=== PATIENT | female | born 1990 | race Caucasian/White ===

== ENCOUNTER 2021-02-17 09:21 | Emergency (ER) | payer OTHER, SELFPAY ==
[2021-02-17 09:21] VITALS: BP 151/100; PULSE 152; RESP 32; TEMP 36.8; O2SAT 98; BMI 24.0
--- NOTE | 2021-02-17 09:30 | ECG_ITS ---
APPROVED REPORT Exam: Resting ECG HR:114 bpm ECG Measurements Heart Rate 114 AXES QRSd 70 QRS 77 QT 450 T 108 QTc 620 Conclusion Accelerated Junctional rhythm T wave abnormality, consider inferolateral ischemia Abnormal ECG Electronically signed by : Tam Avendaño MD 02/18/2021 21:08:03
--- NOTE | 2021-02-17 09:36 | HMH.EDGENADL ---
ED Disposition Clinical Impression: Carpopedal spasm, Hyperventilation Allergic reaction Qualifiers: Encounter type: initial encounter Qualified Code(s): T78.40XA - Allergy, unspecified, initial encounter Disposition: Home, Self-Care Condition on Discharge: Good Instructions: DI for Hyperventilation, DI for General Allergic Reactions Additional Instructions: Take Benadryl if itching or rash returns. Use EpiPen and return emergency department for any trouble breathing. Additional instructions for ALLERGIC REACTION: See your physician as soon as possible for further evaluation. Return immediately if severe intolerable rash or itching, trouble breathing, or faintness. Referrals: Aditya Gar [Primary Care Provider] - - Critical Care Critical Care Time: No Attestation: On , the high probability of a clinically significant, sudden or life threatening deterioration of the following system(s) required my full and direct attention, intervention and personal management. The time I documented below is in addition to time spent performing reported procedures but includes the following listed in this critical care notation. Medical Decision Making - Danny Inquiry Pt receiving controlled substance: No Vital Signs: 02/17/21 09:21 02/17/21 10:00 02/17/21 10:30 Temperature 98.2 F Temperature Source Oral Pulse Rate 93 H 94 H Pulse Rate [Radial] 152 H Respiratory Rate 32 H 14 13 Blood Pressure 112/66 120/63 Blood Pressure [Right Arm] 151/100 H Blood Pressure Mean 81 79 Blood Pressure Mean [Right Arm] 117 Blood Pressure Position Blood Pressure Position [Right Arm] Sitting 02 Sat by Pulse Oximetry 98 100 96 Oxygen Delivery Method Room Air 02/17/21 11:01 Temperature 98 F Temperature Source Oral Pulse Rate 88 Pulse Rate [Radial] Respiratory Rate 18 Blood Pressure 123/68 Blood Pressure [Right Arm] Blood Pressure Mean Blood Pressure Mean [Right Arm] Blood Pressure Position Sitting Blood Pressure Position [Right Arm] 02 Sat by Pulse Oximetry Oxygen Delivery Method Room Air - Lab Data Lab Results 02/17/21 09:30: WBC 10.5, RBC 4.72, Hgb 14.2, Hct 43.5, MCV 92.1, MCH 30.1, MCHC 32.7, RDW 13.3, Plt Count 261, MPV 8.5, Neut % (Auto) 86.2 H, Lymph % (Auto) 10.9, [place] % (Auto) 2.5, Eos % (Auto) 0.3, Baso % (Auto) 0.1, Neut # (Auto) 9.1 H, Lymph # (Auto) 1.2, [place] # (Auto) 0.3, Eos # (Auto) 0.0, Baso # (Auto) 0.0, Total Counted 100, Neutrophils % (Manual) 83 H, Lymphocytes % (Manual) 14, Monocytes % (Manual) 3, Platelet Estimate Normal, RBC Morphology Normal 02/17/21 09:30: Sodium 141, Potassium 4.0, Chloride 100, Carbon Dioxide 29, Anion Gap 16.0 H, BUN 21 H, Creatinine 0.60, Estimated Creat Clear 132, Estimated GFR 117, Est GFR ( Amer) 141, Glucose 135 H, Calcium 9.3, Total Bilirubin 0.8, AST 31, ALT 27, Alkaline Phosphatase 93, Total Protein 7.8, Albumin 4.9, Globulin 2.9, Albumin/Globulin Ratio 1.7 02/17/21 09:39: Urine Color Yellow, Urine Appearance Clear, Urine pH 8.5, Ur Specific [place] 1.015, Urine Protein 2+, Urine Glucose (UA) Negative, Urine Ketones Negative, Urine Blood Negative, Urine Nitrate Negative, Urine Bilirubin Negative, Urine Urobilinogen 1.0, Ur Leukocyte Esterase Negative, Urine RBC None, Urine WBC 3-5, Ur Squamous Epith Cells Occasional, Urine Bacteria None 02/17/21 10:17: Urine HCG, Qual Negative Result diagrams: 02/17/21 09:30 02/17/21 09:30 Orders (Tests/Meds): ED MEDICATIONS Discontinued Medications Generic Name Dose Route Start Last Admin Trade Name Shelton PRN Reason Stop Dose Admin Famotidine 20 mg 02/17/21 09:54 02/17/21 09:58 Famotidine 20mg/2ml Vial IV 02/17/21 09:55 20 mg ONCE ONE Administration Sodium Chloride 1,000 mls @ 999 mls/hr 02/17/21 09:45 02/17/21 09:41 Sod Chlor 0.9% 1000ml Bag IV 02/17/21 10:45 999 mls/hr .Q1H1M WESLEY Administration Methylprednisolone Sodium Succinate 125 mg 02/17/21 09:54 02/17/21 09:58
[2021-02-17 10:00] VITALS: BP 112/66; PULSE 93; RESP 14; O2SAT 100
[2021-02-17 10:05] LABS: Basophils % 0.1 % (0.1-2.0); Eosinophils % 0.3 % (0.1-12.0); Hematocrit 43.5 % (37.0-47.0); Hemoglobin 14.2 g/dL (12.2-16.2); Lymphocytes # 1.2 K/mm3 (0.7-4.5); Lymphocytes % 10.9 % (10-50); Mean Corpuscular HGB Conc 32.7 g/dL (31.8-35.4); Mean Corpuscular Hemoglobin 30.1 pg (27.0-31.2); Mean Corpuscular Volume 92.1 fl (81-99); Mean Platelet Volume 8.5 fl (7.4-10.4); Monocytes # 0.3 K/mm3 (0.1-1.0); Monocytes % 2.5 % (1.7-9.3); Neutrophils # 9.1 K/mm3 (1.8-7.8); Neutrophils % 86.2 % (37.0-80.0); Platelet Count 261 K/mm3 (142-424); Red Blood Count 4.72 M/mm3 (4.20-5.40); Red Cell Distribution Width 13.3 % (11.5-17.5); White Blood Count 10.5 K/mm3 (4.8-10.8)
[2021-02-17 10:06] LABS: Chloride 100 mmol/L (98-107); Sodium 141 mmol/L (136-145)
[2021-02-17 10:09] LABS: Alanine Aminotransferase 27 U/L (12-78); Albumin Level 4.9 g/dl (3.5-5.0); Albumin/Globulin Ratio 1.7 (1.1-1.8); Alkaline Phosphatase 93 U/L (38-126); Aspartate Amino Transferase 31 U/L (14-36); Bilirubin,Total 0.8 mg/dl (0.2-1.3); Blood Urea Nitrogen 21 mg/dl (7-17); Calcium 9.3 mg/dl (8.4-10.2); Carbon Dioxide 29 mmol/L (22.0-30.0); Creatinine Clearance Estimated 132 mL/min (50-200); Estimated Glomerular Filt Rate 117 ml/min (>60); GFR (African American) 141 ML/MIN (>60); Globulin 2.9 g/dL (1.3-3.2); Glucose 135 mg/dl (74-100); Total Protein,Serum 7.8 g/dl (6.3-8.2)
[2021-02-17 10:15] LABS: MANUAL DIFFERENTIAL MANUAL DIFFERENTIAL (MANUAL DIFF)
[2021-02-17 10:26] LABS: Appearance,Urine CLEAR (Clear); Bilirubin,Urine Negative (Negative); Blood, Urine Negative (Negative); Color,Urine YELLOW (Yellow); Glucose,Urine (UA) Negative (Negative); Ketones,Urine Negative (Negative); Leukocyte Esterase,Urine Negative (Negative); Nitrate,Urine Negative (Negative); PH,Urine 8.5 (5.0-8.5); Protein,Urine 2+ (Negative); Specific Gravity, Urine 1.015 (1.005-1.030)
[2021-02-17 10:27] LABS: Microscopic, Urine URINE MICROSCOPIC (MICROSCOPIC)
[2021-02-17 10:29] LABS: Urine Pregnancy, HCG Qual. Negative (Negative)
[2021-02-17 10:30] VITALS: BP 120/63; PULSE 94; RESP 13; O2SAT 96
[2021-02-17 10:37] LABS: Squamous Epithelial Cell,Urine Occasional #/hpf (0-5)
[2021-02-17 10:40] LABS: Lymphocytes % 14 % (10-50); Monocytes % 3 % (2-9); Neutrophils % 83 % (42-76); Total Cells Counted 100
[2021-02-17 10:41] LABS: Platelet Estimate Normal; RBC Morphology Normal
[2021-02-17 11:01] VITALS: BP 123/68; PULSE 88; RESP 18; TEMP 36.6; O2SAT 98
== END 2021-02-17 11:03 | disposition home or self-care (01) ==
PROVIDERS: Emergency Provider Emergency Medicine; PCP Family Medicine
DX: R29.0 Tetany (principal); T78.40XA Allergy, unspecified, initial encounter; R06.4 Hyperventilation; E71.40 Disorder of carnitine metabolism, unspecified
CPT/HCPCS: 80053; 81001; 81025; 85007; 85025; 93005; 96365; 96375; 99283; J2405

== ENCOUNTER 2021-05-08 09:56 | Emergency (ER) | payer BC, SELFPAY ==
[2021-05-08 10:01] VITALS: BP 104/56; PULSE 92; RESP 14; TEMP 36.7; O2SAT 100; BMI 20.9
--- NOTE | 2021-05-08 10:29 | HMH.EDGENADL ---
ED Disposition Clinical Impression: Gastroenteritis Disposition: Home, Self-Care Condition on Discharge: Good Instructions: DI for Diarrhea and Traveler's Diarrhea -- Adult, DI for Diarrhea and Traveler's Diarrhea -- Child, DI for Nausea -- Adult, DI for Nausea -- Child Additional Instructions: Please call Dr. Marcano with [facility] and make an appointment as soon as possible. Please return to the emergency department with any new or worsening symptoms including persistent vomiting and diarrhea with inability to take your levocarnitine, weakness, fainting, or any other new or concerning symptoms. Prescriptions: Ondansetron [Zofran 4mg ODT] 4 mg PO TIDP PRN 3 Days #9 tab PRN Reason: Nausea Transmission Status: Pending to [facility] Referrals: Aditya Gar [Primary Care Provider] - - Critical Care Critical Care Time: No Attestation: On 05/08/21, the high probability of a clinically significant, sudden or life threatening deterioration of the following system(s) required my full and direct attention, intervention and personal management. The time I documented below is in addition to time spent performing reported procedures but includes the following listed in this critical care notation. Medical Decision Making - Danny Inquiry Pt receiving controlled substance: No Vital Signs: 05/08/21 10:01 05/08/21 10:30 Temperature 98.0 F Temperature Source Oral Pulse Rate 94 H Pulse Rate [Right Radial] 92 H Respiratory Rate 14 18 Blood Pressure 108/55 L Blood Pressure [Right Arm] 104/56 L Blood Pressure Mean 64 Blood Pressure Mean [Right Arm] 72 Blood Pressure Source [Right Arm] Automatic Cuff Blood Pressure Position [Right Arm] Right Lateral 02 Sat by Pulse Oximetry 100 100 Oxygen Delivery Method Room Air - Lab Data Lab Results 05/08/21 10:37: WBC 11.0 H, RBC 4.26, Hgb 13.0, Hct 40.3, MCV 94.6, MCH 30.4, MCHC 32.1, RDW 13.8, Plt Count 220, MPV 9.0, Neut % (Auto) 91.0 H, Lymph % (Auto) 3.2 L, [place] % (Auto) 5.0, Eos % (Auto) 0.5, Baso % (Auto) 0.3, Neut # (Auto) 10.0 H, Lymph # (Auto) 0.4 L, [place] # (Auto) 0.6, Eos # (Auto) 0.1, Baso # (Auto) 0.0 05/08/21 10:37: Sodium 136, Potassium 4.1, Chloride 105, Carbon Dioxide 24, Anion Gap 11.1, BUN 26 H, Creatinine 0.60, Estimated Creat Clear 125, Estimated GFR 116, Est GFR ( Amer) 140, Glucose 105 H, Calcium 8.5, Magnesium 1.5 L, Total Bilirubin 0.6, AST 30, ALT 24, Alkaline Phosphatase 97, Total Protein 8.0, Albumin 4.9, Globulin 3.1, Albumin/Globulin Ratio 1.6 Result diagrams: 05/08/21 10:37 05/08/21 10:37 Orders (Tests/Meds): ED MEDICATIONS Discontinued Medications Generic Name Dose Route Start Last Admin Trade Name Freq PRN Reason Stop Dose Admin Lactated Ringer's 1,000 mls @ 999 mls/hr 05/08/21 11:00 05/08/21 11:15 Lactated Ringer's 1000 Ml Bag IV 05/08/21 12:00 999 mls/hr .Q1H1M WESLEY Administration ORDERS Category Date Time Status Complete Blood Count Auto Diff Stat Lab 05/08/21 10:37 Results Urinalysis and Microscopic Stat Lab 05/08/21 10:28 Ordered Urine , HCG Qual. 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 Patient denies dysuria and does not have chest pain or shortness of breath. Patient is hemodynamically stable at the emergency department and had glucose in the 170s per EMS. Patient received 500 cc crystalloid in route to the emergency department. Patient has soft, nontender abdomen and benign physical examination aside from patient appearing fatigued generally with generalized pallor. CBC, metabolic panel obtained in the emergency department and pediatric genetics at
[2021-05-08 10:30] VITALS: BP 108/55; PULSE 94; RESP 18; O2SAT 100
--- NOTE | 2021-05-08 10:45 | PC.NURSE ---
placed call to [facility] for peds genetics, Dr Gallagher speaking with Dr Xavier
[2021-05-08 10:49] LABS: Potassium 4.1 mmoL/L (3.5-5.1); Sodium 136 mmol/L (136-145)
[2021-05-08 10:50] LABS: Chloride 105 mmol/L (98-107)
[2021-05-08 10:52] LABS: Alanine Aminotransferase 24 U/L (12-78); Albumin Level 4.9 g/dl (3.5-5.0); Albumin/Globulin Ratio 1.6 (1.1-1.8); Alkaline Phosphatase 97 U/L (38-126); Anion Gap 11.1 mEq/L (5-15); Aspartate Amino Transferase 30 U/L (14-36); Bilirubin,Total 0.6 mg/dl (0.2-1.3); Blood Urea Nitrogen 26 mg/dl (7-17); Calcium 8.5 mg/dl (8.4-10.2); Carbon Dioxide 24 mmol/L (22.0-30.0); Creatinine Clearance Estimated 125 mL/min (50-200); Estimated Glomerular Filt Rate 116 ml/min (>60); GFR (African American) 140 ML/MIN (>60); Globulin 3.1 g/dL (1.3-3.2); Glucose 105 mg/dl (74-100); Magnesium 1.5 mg/dl (1.6-2.3)
[2021-05-08 11:00] VITALS: BP 103/43; PULSE 97; O2SAT 99
[2021-05-08 11:03] LABS: Basophils % 0.3 % (0.1-2.0); Eosinophils # 0.1 K/mm3 (0.0-0.4); Eosinophils % 0.5 % (0.1-12.0); Hematocrit 40.3 % (37.0-47.0); Lymphocytes # 0.4 K/mm3 (0.7-4.5); Lymphocytes % 3.2 % (10-50); Mean Corpuscular HGB Conc 32.1 g/dL (31.8-35.4); Mean Corpuscular Hemoglobin 30.4 pg (27.0-31.2); Mean Corpuscular Volume 94.6 fl (81-99); Monocytes # 0.6 K/mm3 (0.1-1.0); Platelet Count 220 K/mm3 (142-424); Red Blood Count 4.26 M/mm3 (4.20-5.40); Red Cell Distribution Width 13.8 % (11.5-17.5)
[2021-05-08 11:24] LABS: MANUAL DIFFERENTIAL MANUAL DIFFERENTIAL (MANUAL DIFF)
--- NOTE | 2021-05-08 12:04 | PC.NURSE ---
pt reports feeling better, approx 200 mL left of IVF notified ER
[2021-05-08 12:20] VITALS: BP 113/46; PULSE 82; RESP 16; TEMP 36.9; O2SAT 99
[2021-05-08 12:34] LABS: Eosinophils % 1 % (0-3); Lymphocytes % 5 % (10-50); Monocytes % 6 % (2-9); Neutrophils % 88 % (42-76); Platelet Estimate Normal; Total Cells Counted 100
== END 2021-05-08 12:20 | disposition home or self-care (01) ==
PROVIDERS: Emergency Provider Student in an Organized Health Care Education/Training Program; PCP Family Medicine
DX: K52.9 Noninfective gastroenteritis and colitis, unspecified (principal); E71.40 Disorder of carnitine metabolism, unspecified
CPT/HCPCS: 80053; 83735; 85007; 85025; 96365; 96375; 99282

== ENCOUNTER 2021-08-21 14:56 | Emergency (ER) | payer BC, SELFPAY ==
[2021-08-21 15:06] VITALS: BP 116/64; PULSE 70; RESP 17; TEMP 36.8; O2SAT 100; BMI 20.3
--- NOTE | 2021-08-21 15:17 | HMH.EDUTC ---
[facility] [place] Impression: Vertigo, Viral syndrome Disposition: Home, Self-Care Condition on Discharge: Good Instructions: DI for Vertigo, DI for Viral Syndrome Additional Instructions: Drink plenty of fluids. Take tylenol for pain or fever. Take the medications as directed. Follow up with your regular doctor for further evaluation with in 72 hours if your symptoms don't start to resolve. GO TO THE ER FOR ANY WORSENING SYMPTOMS The meclizine (antivert) will make you drowsy, so don't drive or operate heavy machinery after taking it. Prescriptions: Meclizine HCl 12.5 mg PO Q6HP PRN #20 tab PRN Reason: Dizziness Transmission Status: Received by [facility] #[id number] methylPREDNISolone [Medrol] 4 mg PO DIRECTED 6 Days #21 packet Transmission Status: Received by [facility] #[id number] Referrals: Provider,Referral, [Primary Care Provider] - Time of Disposition: 15:59 Medical Decision Making - Medical Records Medical records reviewed: No: I reviewed the patient's medical records. - Danny Inquiry Pt receiving controlled substance: No Vital Signs: 08/21/21 15:06 08/21/21 15:29 08/21/21 16:10 Temperature 98.3 F 98.3 F Temperature Source Oral Pulse Rate 80 Pulse Rate [Left Radial] 70 Pulse Rate [Orthostatic Lying Right Radial] 62 Pulse Rate [Orthostatic Sitting Right Radial] 86 Pulse Rate [Orthostatic Standing Right Radial] 80 Respiratory Rate 17 17 Blood Pressure 116/76 Blood Pressure [Orthostatic Lying Right Arm] 96/53 L Blood Pressure [Orthostatic Sitting Right Arm] 116/76 Blood Pressure [Orthostatic Standing Right Arm] 105/63 L Blood Pressure [Right Arm] 116/64 Blood Pressure Mean [Right Arm] 81 02 Sat by Pulse Oximetry 100 Medical Decision Narrative: She refused the covid-19 test. [facility] [place] - General Stated complaint: dizzy Time Seen by Provider: 08/21/21 15:17 Description of Symptoms (Recalled from Triage Doc. by RN): patient comes in today with complaints of dizziness. patient states that it has been going on or 2 days HEENT Symptoms (Recalled from RN notes): No Resp Symptoms (Recalled from RN notes): No Skin Symptoms (Recalled from RN notes): No MS Symptoms (Recalled from RN notes): No Functional Status (Recalled from RN notes): wnl - History of Present Illness Provider Complaint: She states that she has been having dizziness for the past 2 days. Her symptoms are almost constant and she cannot identify anything that makes it worse or better. Her symptoms began with some body aches and chilling, but that has resolved and now she states that she feels fine other than the dizziness. - Related Data Home Medications Medication Instructions Recorded Confirmed levOCARNitine (with sugar) 10 ml PO TID 05/08/21 08/21/21 [Levocarnitine 100 mg/ml Soln] Previous Rx's Medication Instructions Recorded Ondansetron [Zofran 4mg ODT] 4 mg PO TIDP PRN 3 Days #9 tab 05/08/21 Meclizine HCl 12.5 mg PO Q6HP PRN #20 tab 08/21/21 methylPREDNISolone [Medrol] 4 mg PO DIRECTED 6 Days #21 08/21/21 packet Allergies Allergy/AdvReac Type Severity Reaction Status Date / Time No Known Allergies Allergy Verified 02/17/21 09:39 - Worker's Comp Is this a Worker's Comp case?: No [facility] History - Hepatitis A Screen Attestation statement:: This patient has been screened for Hepatitis A risk factors. 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
[2021-08-21 15:29] VITALS: BP 105/63; BP 116/76; BP 96/53; PULSE 62; PULSE 80; PULSE 86
--- NOTE | 2021-08-21 15:40 | ECG_ITS ---
APPROVED REPORT Exam: Resting ECG HR:71 bpm ECG Measurements Heart Rate 71 AXES AK 154 P 66 QRSd 84 QRS 41 QT 392 T 71 QTc 415 Conclusion SINUS RHYTHM WITH SINUS ARRHYTHMIA NORMAL ECG INTERPRETATION BASED ON A DEFAULT AGE OF 39 YEARS UNCONFIRMED REPORT Electronically signed by : Tam Avendaño MD 08/22/2021 21:18:50
[2021-08-21 16:10] VITALS: BP 116/76; PULSE 80; RESP 17; TEMP 36.8
== END 2021-08-21 16:14 | disposition home or self-care (01) ==
PROVIDERS: Emergency Provider Nurse Practitioner Family
DX: R42 Dizziness and giddiness (principal); B34.9 Viral infection, unspecified
CPT/HCPCS: 93005; 99212; G0463

== ENCOUNTER 2021-09-09 10:07 | Emergency (ER) | payer BC, SELFPAY ==
[2021-09-09] VITALS (7 sets, daily range): BP systolic 80–103; BP diastolic 46–59; PULSE 84–98; RESP 16–22; TEMP 36.8–37.6; O2SAT 98–100; BMI 20.1
--- NOTE | 2021-09-09 10:37 | HMH.EDNVD ---
ED Disposition Clinical Impression: Gastroenteritis Disposition: Home, Self-Care Condition on Discharge: Fair Instructions: DI for Nausea -- Adult, Nausea and Vomiting-Adult Additional Instructions: Follow-up with your primary care physician in a few days if you do not feel any better. I strongly recommend that you follow-up with a rim buster to have a work-up done as to why you may be having these recurrent episodes. Return to the emergency department immediately if you feel worse in any way. Stick with a clear liquid diet for the next day or 2. Prescriptions: Dicyclomine HCl [Bentyl 10mg capsule] 10 mg PO TID PRN #21 cap PRN Reason: Abdominal cramping Transmission Status: Pending to [facility] #[id number] Ondansetron [Ondansetron Odt 8mg Tab] 8 mg PO QID 4 Days #16 tab Transmission Status: Pending to [facility] #[id number] Referrals: Provider,Referral, [Primary Care Provider] - - Critical Care Critical Care Time: No Attestation: On 09/09/21, the high probability of a clinically significant, sudden or life threatening deterioration of the following system(s) required my full and direct attention, intervention and personal management. The time I documented below is in addition to time spent performing reported procedures but includes the following listed in this critical care notation. Medical Decision Making - Medical Records Medical records reviewed: Yes: I reviewed the patient's medical records. - Danny Inquiry Pt receiving controlled substance: No Vital Signs: 09/09/21 10:08 09/09/21 10:37 09/09/21 11:00 Temperature 98.7 F 99.7 F H Temperature Source Oral Oral Pulse Rate 96 H Pulse Rate [Left Radial] 98 H Respiratory Rate 22 16 Blood Pressure 89/46 L Blood Pressure [Left Arm] 89/46 L Blood Pressure Mean 56 Blood Pressure Mean [Left Arm] 60 Blood Pressure Source Blood Pressure Source [Left Arm] Automatic Cuff Blood Pressure Position Blood Pressure Position [Left Arm] Sitting 02 Sat by Pulse Oximetry 99 99 Oxygen Delivery Method Room Air 09/09/21 11:10 Temperature Temperature Source Pulse Rate Pulse Rate [Left Radial] Respiratory Rate Blood Pressure 80/50 L Blood Pressure [Left Arm] Blood Pressure Mean Blood Pressure Mean [Left Arm] Blood Pressure Source Manual Cuff/ Auscultation Blood Pressure Source [Left Arm] Blood Pressure Position Supine Blood Pressure Position [Left Arm] 02 Sat by Pulse Oximetry Oxygen Delivery Method - Lab Data Lab results reviewed: Yes: I reviewed the patient's lab results. Lab Results 09/09/21 10:35: Urine Color Yellow, Urine Appearance Turbid, Urine pH 6.0, Ur Specific [place] >= 1.030, Urine Protein 2+, Urine Glucose (UA) Negative, Urine Ketones 1+, Urine Blood Negative, Urine Nitrate Positive, Urine Bilirubin 2+ A, Urine Urobilinogen 1.0, Ur Leukocyte Esterase Negative, Urine RBC 5-10, Urine WBC 3-5, Ur Squamous Epith Cells None, Urine Bacteria 4+ 09/09/21 10:35: WBC 16.1 H, RBC 4.91, Hgb 15.0, Hct 47.6 H, MCV 96.9, MCH 30.5, MCHC 31.5 L, RDW 13.7, Plt Count 327, MPV 8.6, Neut % (Auto) 92.2 H, Lymph % (Auto) 3.2 L, [place] % (Auto) 2.8, Eos % (Auto) 1.2, Baso % (Auto) 0.7, Neut # (Auto) 14.8 H, Lymph # (Auto) 0.5 L, [place] # (Auto) 0.5, Eos # (Auto) 0.2, Baso # (Auto) 0.1, Total Counted 100, Neutrophils % (Manual) 90 H, Lymphocytes % (Manual) 5 L, Monocytes % (Manual) 4, Eosinophils % (Manual) 1, Platelet Estimate Normal, Tear Drop Cells 1+, Stomatocytes 2+ 09/09/21 10:35: Urine HCG, Qual Negative 09/09/21 10:35: Sodium 140, Potassium 3.8, Chloride 102, Carbon Dioxide 21 L, Anion Gap 20.8 H, BUN 20 H, Creatinine 0.60, Estimated Creat Clear 120, Estimated GFR 116, Est GFR ( Amer) 140, Glucose 183 H, Calcium 10.7 H, Total Bilirubin 0.7, AST 37 H, ALT 32, Alkaline Phosphatase 106, Total Protein 9.7 H, Albumin 5.6 H, Globulin 4.1 H, Albumin/Globulin Ratio 1.4, Lipase 68 09/09/21 10:53: POC Glucos
[2021-09-09 10:41] LABS: Microscopic, Urine URINE MICROSCOPIC (MICROSCOPIC)
[2021-09-09 10:44] LABS: Basophils # 0.1 K/mm3 (0-0.2); Basophils % 0.7 % (0.1-2.0); Eosinophils # 0.2 K/mm3 (0.0-0.4); Eosinophils % 1.2 % (0.1-12.0); Hematocrit 47.6 % (37.0-47.0); Lymphocytes # 0.5 K/mm3 (0.7-4.5); Lymphocytes % 3.2 % (10-50); Mean Corpuscular HGB Conc 31.5 g/dL (31.8-35.4); Mean Corpuscular Hemoglobin 30.5 pg (27.0-31.2); Mean Corpuscular Volume 96.9 fl (81-99); Mean Platelet Volume 8.6 fl (7.4-10.4); Monocytes # 0.5 K/mm3 (0.1-1.0); Monocytes % 2.8 % (1.7-9.3); Neutrophils # 14.8 K/mm3 (1.8-7.8); Neutrophils % 92.2 % (37.0-80.0); Platelet Count 327 K/mm3 (142-424); Red Blood Count 4.91 M/mm3 (4.20-5.40); Red Cell Distribution Width 13.7 % (11.5-17.5); White Blood Count 16.1 K/mm3 (4.8-10.8)
[2021-09-09 10:46] LABS: Appearance,Urine TURBID (Clear); Blood, Urine Negative (Negative); Chloride 102 mmol/L (98-107); Color,Urine YELLOW (Yellow); Glucose,Urine (UA) Negative (Negative); Ketones,Urine 1+ (Negative); Leukocyte Esterase,Urine Negative (Negative); Nitrate,Urine POSITIVE (Negative); Potassium 3.8 mmoL/L (3.5-5.1); Protein,Urine 2+ (Negative); Sodium 140 mmol/L (136-145); Specific Gravity, Urine >= 1.030 (1.005-1.030)
[2021-09-09 10:47] LABS: Urine Pregnancy, HCG Qual. Negative (Negative)
[2021-09-09 10:49] LABS: Alanine Aminotransferase 32 U/L (12-78); Albumin Level 5.6 g/dl (3.5-5.0); Albumin/Globulin Ratio 1.4 (1.1-1.8); Alkaline Phosphatase 106 U/L (38-126); Anion Gap 20.8 mEq/L (5-15); Aspartate Amino Transferase 37 U/L (14-36); Bilirubin,Total 0.7 mg/dl (0.2-1.3); Blood Urea Nitrogen 20 mg/dl (7-17); Calcium 10.7 mg/dl (8.4-10.2); Carbon Dioxide 21 mmol/L (22.0-30.0); Creatinine Clearance Estimated 120 mL/min (50-200); Estimated Glomerular Filt Rate 116 ml/min (>60); GFR (African American) 140 ML/MIN (>60); Globulin 4.1 g/dL (1.3-3.2); Glucose 183 mg/dl (74-100); Lipase 68 U/L (23-300); Total Protein,Serum 9.7 g/dl (6.3-8.2)
[2021-09-09 10:51] LABS: MANUAL DIFFERENTIAL MANUAL DIFFERENTIAL (MANUAL DIFF)
[2021-09-09 11:01] LABS: POC Glucose,Bedside 128 (70-110)
[2021-09-09 11:04] LABS: Bilirubin,Urine 2+ (Negative)
[2021-09-09 11:06] LABS: Bacteria,Urine 4+ /lpf
[2021-09-09 11:08] LABS: Eosinophils % 1 % (0-3); Lymphocytes % 5 % (10-50); Monocytes % 4 % (2-9); Neutrophils % 90 % (42-76); Total Cells Counted 100
[2021-09-09 11:09] LABS: Platelet Estimate Normal; Stomatocytes 2+
[2021-09-09 11:10] LABS: Tear Drop Cells 1+
--- NOTE | 2021-09-09 11:29 | PC.NURSE ---
at approx 1115- pt was having low bp readings on datascope, was having difficulty obtaining accurate manual bp r/t pt shivering. Pt moved to room 7, placed in gown, warm blanket wrapped around pt back for warmth. Was able to at that time get pt manual bp 80/50, reports she is starting to feel better, refused bentlyl injection, reports is not having cramping anymore. will continue to monitor
--- NOTE | 2021-09-09 11:40 | PC.NURSE ---
C[employer]ed cafeteria for gatorade for pt
--- NOTE | 2021-09-09 12:03 | PC.NURSE ---
pt drinking gatorade and requesting something for MILNER
--- NOTE | 2021-09-09 12:11 | PC.NURSE ---
toradol ordered for MILNER , checked with Dr Garcia if meds were safe for nursing as pt requested
== END 2021-09-09 12:27 | disposition home or self-care (01) ==
PROVIDERS: Emergency Provider Emergency Medicine
DX: K52.89 Other specified noninfective gastroenteritis and colitis (principal); Z79.899 Other long term (current) drug therapy
CPT/HCPCS: 80053; 81001; 81025; 82962; 83690; 85007; 85025; 87086; 96365; 96366; 96375; 99284; J2405

== ENCOUNTER 2023-02-16 08:03 | Emergency (ER) | payer BC, SELFPAY ==
[2023-02-16 08:05] VITALS: BP 134/103; PULSE 102; RESP 16; TEMP 36.8; O2SAT 100; BMI 19.3
--- NOTE | 2023-02-16 08:20 | PC.NURSE ---
PT PROVIDED BLANKET AND MOUTH SWABS
--- NOTE | 2023-02-16 08:24 | PC.NURSE ---
DR AVALOS AT BEDSIDE
--- NOTE | 2023-02-16 08:27 | HMH.EDGENADL ---
Discharge Plan Disposition Patient Disposition: Home, Self-Care Condition: Good Prescriptions Prescriptions: New ondansetron 8 mg tablet,disintegrating 8 mg PO Q8H PRN (Reason: nausea and vomiting) 4 Days Qty: 12 0RF No Action levocarnitine (with sugar) 100 MG/ML solution 10 ml PO TID ondansetron 4 MG tablet,disintegrating 4 mg PO TIDP PRN (Reason: Nausea) 3 Days Qty: 9 0RF methylprednisolone 4 MG tablets,dose pack 4 mg PO DIRECTED 6 Days Qty: 21 0RF meclizine 12.5 MG tablet 12.5 mg PO Q6HP PRN (Reason: Dizziness) Qty: 20 0RF ondansetron 8 MG tablet,disintegrating 8 mg PO QID 4 Days Qty: 16 0RF Rx Instructions: Take 1 tablet every 6 hours as needed for nausea or vomiting dicyclomine 10 MG capsule 10 mg PO TID PRN (Reason: Abdominal cramping) Qty: 21 0RF Referrals Follow up/Referrals: Provider,Referral, MD [Primary Care Provider] - See instructions Activity Restrictions/Add. Instructions Additional Instructions/Restrictions: You were evaluated in the emergency department today. Please tack picker your prescription and take as needed for nausea and vomiting. Follow-up with your primary care fighter over the next 3 days for reassessment. Continue taking your other medications at home as prescribed. Return to the emergency department for new or worsening symptoms. Clinical Impressions Clinical Impression: Nausea and vomiting, Dehydration, Abnormal urinalysis Instructions Patient Instructions: DI for Diarrhea and Traveler's Diarrhea -- Adult, DI for Nausea -- Adult Discharge ED Provider: Enedina Baron General Adult HPI General Chief complaint: Nausea/Vomiting/Diarrhea Stated complaint: vomitting,diarhhea Time Seen by Provider: 02/16/23 08:22 Mode of Arrival: Wheelchair Source of Information: Patient Limitations: No Limitations Description of Symptoms (Recalled from ER Triage Doc. by RN): PT REPORTS VOMITING, DIARRHEA AND ABDOMINAL PAIN THAT STARTED ABOUT 0500. STATES SHE DOES THIS ABOUT EVERY 6 MONTHS, UNKNOWN CAUSE History of Present Illness HPI narrative: This patient is a 32-year-old female with a history of L-carnitine deficiency presenting to the emergency department for evaluation with concern for abdominal cramping, nausea, vomiting, and diarrhea that started this morning. Emesis is nonbloody and nonbilious, and diarrhea is nonbloody. She states that this happens around every 6 months, and she typically requires IV fluids and IV antiemetics to resolve her symptoms. She denies any other concerns or complaints at this time. No localized abdominal pain, only generalized cramping. Related Data Home Medications Medication Instructions Recorded Confirmed levocarnitine (with sugar) 100 10 ml PO TID carnitine deficiency 05/08/21 08/21/21 mg/mL oral solution Previous Rx's Medication Instructions Recorded ondansetron 4 mg disintegrating 4 mg PO TIDP PRN Nausea 3 days #9 05/08/21 tablet tabs meclizine 12.5 mg tablet 12.5 mg PO Q6HP PRN Dizziness #20 08/21/21 tabs methylprednisolone 4 mg tablets in 4 mg PO DIRECTED 6 days #21 08/21/21 a dose pack packets dicyclomine 10 mg capsule 10 mg PO TID PRN Abdominal 09/09/21 cramping #21 caps ondansetron 8 mg disintegrating 8 mg PO QID Nausea & vomiting 4 09/09/21 tablet days #16 tabs ondansetron 8 mg disintegrating 8 mg PO Q8H PRN nausea and 02/16/23 tablet vomiting 4 days #12 tabs Allergies Allergy/AdvReac Type Severity Reaction Status Date / Time No Known Allergies Allergy Verified 02/17/21 09:39 [facility] Disclaimer: The information contained in this section may have been updated after the patient was seen, as this information can be updated by other users. Social History Smoking Status: Never smoker alcohol intake: never current occupational status: employed Travel in the last 8 weeks: None ROS Obtained: Yes All systems
[2023-02-16 08:34] LABS: Basophils % 0.2 % (0.1-2.0); Eosinophils # 0.1 K/mm3 (0.0-0.4); Eosinophils % 0.9 % (0.1-12.0); Hematocrit 46.3 % (37.0-47.0); Hemoglobin 15.2 g/dL (12.2-16.2); Lymphocytes # 0.4 K/mm3 (0.7-4.5); Lymphocytes % 4.2 % (10-50); Mean Corpuscular HGB Conc 32.7 g/dL (31.8-35.4); Mean Corpuscular Hemoglobin 30.6 pg (27.0-31.2); Mean Corpuscular Volume 93.6 fl (81-99); Mean Platelet Volume 9.1 fl (7.4-10.4); Monocytes # 0.3 K/mm3 (0.1-1.0); Monocytes % 2.4 % (1.7-9.3); Neutrophils # 9.7 K/mm3 (1.8-7.8); Neutrophils % 92.3 % (37.0-80.0); Platelet Count 246 K/mm3 (142-424); Red Blood Count 4.95 M/mm3 (4.20-5.40); Red Cell Distribution Width 13.4 % (11.5-17.5); White Blood Count 10.6 K/mm3 (4.8-10.8)
[2023-02-16 08:35] VITALS: BP 74/33; PULSE 108; RESP 22; O2SAT 100
--- NOTE | 2023-02-16 08:37 | PC.NURSE ---
pt refused covid/flu swab PALOMA Bassett and aware
--- NOTE | 2023-02-16 08:39 | PC.NURSE ---
blood pressures are not consistant due to pt consistantly moving in the bed
[2023-02-16 08:42] LABS: MANUAL DIFFERENTIAL MANUAL DIFFERENTIAL (MANUAL DIFF)
[2023-02-16 08:44] VITALS: BP 96/78; PULSE 108; O2SAT 98
--- NOTE | 2023-02-16 08:44 | PC.NURSE ---
PT REFUSED IV TYLENOL AND MD ANÍBAL AWARE
--- NOTE | 2023-02-16 08:45 | PC.NURSE ---
Pt called out and asked for assistance to bathroom. Pt stood and began to walk to bathroom and then turned around and got back in bed. She advised she needs to go to bathroom, but feels like she is going to pass out pt remains in bed at this time.
[2023-02-16 08:52] LABS: HCG Qualitative, Serum Negative (Negative)
[2023-02-16 08:56] LABS: Chloride 104 mmol/L (98-107); Potassium 4.4 mmoL/L (3.5-5.1); Sodium 140 mmol/L (136-145)
[2023-02-16 08:58] LABS: Blood Urea Nitrogen 23 mg/dl (7-17); Creatinine Clearance Estimated 98 mL/min (50-200); Estimated Glomerular Filt Rate 96 ml/min (>60); GFR (African American) 117 ML/MIN (>60)
[2023-02-16 08:59] LABS: Alanine Aminotransferase 30 U/L (12-78); Albumin Level 5.6 g/dl (3.5-5.0); Albumin/Globulin Ratio 1.5 (1.1-1.8); Alkaline Phosphatase 98 U/L (38-126); Anion Gap 15.4 mEq/L (5-15); Aspartate Amino Transferase 35 U/L (14-36); Bilirubin,Total 0.6 mg/dl (0.2-1.3); Calcium 9.8 mg/dl (8.4-10.2); Carbon Dioxide 25 mmol/L (22.0-30.0); Globulin 3.8 g/dL (1.3-3.2); Glucose 166 mg/dl (74-100); Lipase 66 U/L (23-300); Lymphocytes % 7 % (10-50); Monocytes % 10 % (2-9); Neutrophils % 67 % (42-76); Total Cells Counted 100; Total Protein,Serum 9.4 g/dl (6.3-8.2)
[2023-02-16 09:00] LABS: Platelet Estimate Normal; Stomatocytes 2+
--- NOTE | 2023-02-16 09:01 | PC.NURSE ---
Pt called out for assistance to bathroom. Renee Malone assisting pt to the bathroom when pt sat down in the floor and advised I got dizzy. Isn't that what you're supposed to do when you're dizzy Pt then assisted back to standing and ambulated to bathroom. Pt able to obtain urine and stool. Pt than assisted back to bed by Rickie Melgoza. Pt voiced no other needs at this time. Call light within reach at this time.
[2023-02-16 09:04] LABS: Microscopic, Urine URINE MICROSCOPIC (MICROSCOPIC)
[2023-02-16 09:37] LABS: Appearance,Urine CLEAR (Clear); Blood, Urine TRACE-I (Negative); Color,Urine YELLOW (Yellow); Glucose,Urine (UA) Negative (Negative); Ketones,Urine 1+ (Negative); Leukocyte Esterase,Urine 1+ (Negative); Nitrate,Urine POSITIVE (Negative); PH,Urine 6.5 (5.0-8.5); Protein,Urine 1+ (Negative); Specific Gravity, Urine 1.025 (1.005-1.030); Urobilinogen,Urine 0.2 EU/dl (0.2)
[2023-02-16 09:41] LABS: Bilirubin,Urine Negative (Negative)
[2023-02-16 09:42] LABS: Bacteria,Urine Trace /lpf; RBC,Urine Occasional #/hpf (0-3)
[2023-02-16 10:50] VITALS: BP 107/71; PULSE 96; RESP 19; TEMP 36.8; O2SAT 97
== END 2023-02-16 11:25 | disposition home or self-care (01) ==
PROVIDERS: Emergency Provider Emergency Medicine
DX: E86.0 Dehydration (principal); R11.2 Nausea with vomiting, unspecified; R19.7 Diarrhea, unspecified; R10.84 Generalized abdominal pain
CPT/HCPCS: 80053; 81001; 83690; 84703; 85007; 85025; 87086; 96361; 96374; 96375; 99285

== ENCOUNTER 2023-08-06 15:37 | Emergency (ER) | payer BC, SELFPAY ==
--- NOTE | 2023-08-06 15:42 | ED_ITS ---
Discharge Plan Disposition Patient Disposition: Home, Self-Care Condition: Good Referrals Follow up/Referrals: Provider,Referral, MD [Primary Care Provider] - See instructions Maggie Dunn DPM [Staff Physician] - See instructions Activity Restrictions/Add. Instructions Additional Instructions/Restrictions: Rest the extremity, Elevate the extremity as tolerated while you are resting. Take tylenol for pain. Follow up with Dr. Dunn (podiatry) if you continue to have symptoms. I put in a referral but you need to call her office and schedule an appointment. Follow up with your regular doctor. GO TO THE ER FOR ANY WORSENING SYMPTOMS Clinical Impressions Clinical Impression: Contusion of great toe, right, Foot pain, right Instructions Patient Instructions: Contusion, DI for Contusion Discharge ED Provider: Scott Christianson [facility] General Stated complaint: AO 1900 big toe on right foot Time Seen by Provider: 08/06/23 15:42 History of Present Illness Provider Complaint: She state that a heavy piece of metal fell on her right great toe last night. Since then she has had pain, swelling and bruising of that toe. She denies any other injury. Related Data Allergies Allergy/AdvReac Type Severity Reaction Status Date / Time No Known Allergies Allergy Verified 02/17/21 09:39 [facility] Disclaimer: The information contained in this section may have been updated after the patient was seen, as this information can be updated by other users. Medical History (Updated 08/06/23 @ 17:29 by Scott Christianson APRN) Craniosynostosis Anxiety Social History (Updated 02/16/23 @ 13:56 by Enedina Baron DO) Smoking Status: Never smoker alcohol intake: never current occupational status: employed Travel in the last 8 weeks: None ROS Obtained: Yes All systems reviewed & no additional complaints except as documented Constitutional Constitutional: Denies chills and Denies fever(s) Eyes Eyes: Denies eye discharge ENT Ears, Nose, Mouth, and Throat: Denies dizziness, Denies otalgia and Denies sore throat Cardiovascular Cardiovascular: Denies chest pain Respiratory Respiratory: Denies shortness of breath, Denies chest congestion, Denies cough, Denies stridor and Denies wheezing Gastrointestinal Gastrointestingal: Denies nausea or vomiting Musculoskeletal Musculoskeletal: Reports as per HPI Integumentary/Breasts Skin/Breast: Denies redness, Denies rash and Denies wounds Neurologic Neurologic: Denies dizziness and Denies paresthesias Allergic/Immunologic Allergic/Immunologic: Denies wheezing Physical Exam General General appearance: alert and in no apparent distress Head Head exam: atraumatic, normocephalic and normal inspection Eye Eye exam: Present normal appearance, PERRL and EOMI ENT ENT exam: Present normal exam, normal oropharynx, mucous membranes moist, TM's normal bilaterally and normal external ear exam Neck Neck exam: Present normal inspection, full ROM and trachea midline; Absent meningismus or lymphadenopathy Chest Chest inspection: Present normal inspection and symmetric chest wall rise; Absent tenderness Respiratory Respiratory exam: Present normal lung sounds bilaterally; Absent respiratory distress Cardiovascular Cardiovascular exam: Present regular rate and normal rhythm; Absent JVD Abdominal Exam Abdominal exam: Present soft and normal bowel sounds; Absent distention, tenderness or guarding Extremities Exam Extremities exam: Present normal capillary refill; Absent calf tenderness Expanded Lower Extremity Exam Right: Knee exam: Present normal inspection, full ROM and knee extension intact; Absent tenderness Lower leg exam: Present normal inspection, full ROM and Achilles tendon intact; Absent tenderness or Homans' sign Ankle exam: Present normal inspection and full ROM; Absent tenderness, swelling, abrasion, laceration, ecchymosis, deformity, crepitus, dislocation, erythema, tenderness over talofibular lig or anterior draw sign Foot/toe exam: Present full ROM, tenderness, swelling and ecchymosis; Absent abrasion, laceration, deformity, crepitus, dislocation, erythema, amputation, puncture wound, foreign body, calcaneal tenderness, tenderness at base of 5th metatarsal, nail avulsion or subungual hematoma Neurovascular/Tendon exam: Present normal capillary refill, normal 2-point discrimination and normal fine/light touch; Absent pulse deficit, motor deficit, sensory deficit, tendon deficit, extremity cold to touch or pallor Gait: observed and limited by pain Back Exam Back exam: Present normal inspection; Absent tenderness Neurological Exam Neurological exam: Present alert and oriented X3 Psychiatric Psychiatric exam: Present normal affect and normal mood Skin Skin exam: Present warm, dry, intact and normal color Lymphatic Lymphatic Findings: no adenopathy Medical Decision Making Medical Records Medical records reviewed: No I reviewed the patient's medical records. Danny Inquiry Pt receiving controlled substance: No Radiology Data #1: Image(s): Foot/Toes Image Reviewed: Yes I reviewed the patient's radiology image and Yes I have reviewed radiologist's interpretation Preliminary Findings: No Fracture Seen Accession No. : [id number] Patient Name / ID : STEVE BARRY / [id number] Exam Date : 08/06/2023 16:00:13 ( Final ) Study Comment : Sex / Age : F / 33Y Creator : NICOL PECK Dictator : Eyeglass Lens Generator : Motor Express Clerk : NICOL PECK Approver2 : Report Date : 08/06/2023 16:50:20 My Comment : FINAL REPORT CLINICAL HISTORY: heavy object fell on big toe FINDINGS: RIGHT FOOT 3 views of the right foot were obtained. There is no acute fracture or dislocation. Visualized joint spaces are normally aligned. Soft tissues are unremarkable. IMPRESSION: No acute bony abnormality. Reviewed, Interpreted and Dictated by Nicol Peck MD Transcribed by Concha Wyman Authenticated and [facility]
[2023-08-06 15:45] VITALS: BP 143/78; PULSE 56; RESP 18; TEMP 36.7; O2SAT 100; BMI 20.1
--- NOTE | 2023-08-06 15:53 | XR_ITS ---
FINAL REPORT CLINICAL HISTORY: heavy object fell on big toe FINDINGS: RIGHT FOOT 3 views of the right foot were obtained. There is no acute fracture or dislocation. Visualized joint spaces are normally aligned. Soft tissues are unremarkable. IMPRESSION: No acute bony abnormality. Reviewed, Interpreted and Dictated by Zain Peck MD Transcribed by Concha Wyman Authenticated and . [facility]
[2023-08-06 17:32] VITALS: BP 143/78; PULSE 56; RESP 18; TEMP 36.7; O2SAT 100
== END 2023-08-06 17:35 | disposition home or self-care (01) ==
PROVIDERS: Emergency Provider Nurse Practitioner Family
DX: M79.671 Pain in right foot (principal); S90.111A Contusion of right great toe without damage to nail, initial encounter; W20.8XXA Other cause of strike by thrown, projected or falling object, initial encounter
CPT/HCPCS: 73630; 99212; 99214; G0463

== ENCOUNTER 2024-04-14 08:19 | Day surgery (SDC) | payer BC, SELFPAY ==
[2024-04-12 17:04] VITALS: BMI 19.3
[2024-04-14 08:38] VITALS: BP 100/63; PULSE 53; RESP 16; TEMP 36.7; O2SAT 100
[2024-04-14] MEDS: LACTATED RINGERS 1000ML 1,000 ML 50 ML IV (08:46)
[2024-04-14 09:02] LABS: Urine Pregnancy, HCG Qual. Negative (Negative)
--- NOTE | 2024-04-14 09:08 | P.PNANES_ITS ---
[facility] Disclaimer: The information contained in this section may have been updated after the patient was seen, as this information can be updated by other users. Medical History Craniosynostosis Anxiety Surgical History History of cranial surgery Family History Other No significant family history Social History Smoking Status: Never smoker alcohol intake: never substance use type: denies use current occupational status: employed Travel in the last 8 weeks: None [facility] Anesthesia Checklist Patient Identification Patient Identification: Arm Band, Family and Verbal (Name & ) Structural Data Admitted From: Home Planned Operative Procedure/s: Colonoscopy Consent for Planned Operative Procedure(s) Verified: Yes Verified Documents: Surgical Consent and History and Physical NPO Status Verified Time NPO: 07:00 Chart Verification Results Verified: CBC, BMP and HCG Additional verifications Patient : No Anesthesia Reactions: No Cardiovascular Assessment Heart Sounds: S1 & S2 Pulse Rhythm: Irregular Peripheral Edema: No Airway Assessment Mallampati Score:: Class I C-Spine Mobility Assessed: Yes TMJ Mobility Assessed: Yes Dentition: Good Dentition Neurological Assessment Level of Consciousness: Awake, Alert, Appropriate and Follows Commands Hx Seizures: No Numbness or tingling in extremities: No Anesthesia Plan Anesthesia Risk discussed: Yes Anesthesia Plan: Verified ASA Class: I Anesthesia Type: MAC
--- NOTE | 2024-04-14 09:32 | P.HP_ITS ---
History of Present Illness *Admission Date: 04/14/24 *Reason for visit:: Rectal bleeding and mucus in stool with constipation *History of present illness: Ms. Marroquin is a 34-year-old female who is here for diagnostic colonoscopy secondary to rectal bleeding and mucus with difficulty and incomplete defecation. The examination is deemed medically necessary for diagnostic colonoscopy. The patient has been seen, interviewed and examined prior to the procedure by both myself and the anesthesia provider. [facility] Disclaimer: The information contained in this section may have been updated after the patient was seen, as this information can be updated by other users. Medical History (Updated 04/14/24 @ 09:34 by Maynor Downing II, MD) Craniosynostosis Anxiety Surgical History History of cranial surgery Family History Other No significant family history Social History (Updated 04/14/24 @ 09:09 by Sandy Luciano CRNA) Smoking Status: Never smoker alcohol intake: never substance use type: denies use current occupational status: employed Travel in the last 8 weeks: None Have you lived/traveled outside US in past 30 days?: No Contact w/someone who lives/traveled outside US past 30 days?: No Exposure to someone with infectious disease in past 14 days?: No Do you have a fever (greater than 100.4 F or 38 C)?: No Have you tested positive for COVID-19: No Exposed to someone with COVID-19 in past 14 days?: No Do you have a sore throat?: No Do you have a cough?: No Do you have any weakness?: No Are you experiencing any nausea/vomitting?: No Do you have any diarrhea?: No Are you experiencing any unusual bleeding?: No Do you have any muscle aches/pain?: No Do you have any abdominal pain?: No Are you experiencing loss of taste or smell?: No Other Medical History Have you received the Flu Vaccine for this season: No Have you received the Pneumonia Vaccine: No Review of Systems Review of Systems Review of systems (narrative): Negative *Cardiovascular Comments: Negative *Gastrointestinal Comments: Negative *Genitourinary Comments: Negative *Musculoskeletal Comments: Negative *Neurologic Comments: Negative Meds Home Medications and Allergies Home Medications ?Medication ?Instructions ?Recorded ?Confirmed ?Type magnesium citrate 85 mg chewable 85 mg PO NEEDED PRN Constipation 02/03/24 04/14/24 History tablet cholecalciferol (vit D3) 1,000 1,000 tab PO DAILY 04/12/24 04/14/24 History unit-vitamin K2 (MK4) 100 mcg tablet fiber 1 cap PO DAILY 04/12/24 04/14/24 History lactobacillus combination no.4 3 3 cell PO DAILY 04/12/24 04/14/24 History billion cell capsule (Probiotic) levocarnitine 250 mg capsule 250 mg PO DAILY 04/12/24 04/14/24 History multivitamin 1 cap PO DAILY 04/12/24 04/14/24 History New Prescriptions to Start Prescriptions: Allergies Allergy/AdvReac Type Severity Reaction Status Date / Time No Known Allergies Allergy Verified 04/14/24 08:34 Exam Data for Last 24 hours Vital signs and Labs for Last 24 Hours: Temp Pulse Resp BP Pulse Ox O2 Del Method 98.1 F 53 L 16 100/63 L 100 Room Air 04/14/24 08:38 04/14/24 08:38 04/14/24 08:38 04/14/24 08:38 04/14/24 08:38 04/14/24 08:38 Laboratory Results - last 24 hr 04/14/24 08:27: Urine HCG, Qual Negative I & O for Last 24 hours: Intake & Output 04/11/24 04/12/24 04/13/24 04/14/24 23:59 23:59 23:59 23:59 Weight 120 lb *Routine HEENT Exam Head: Present normocephalic Eye: Present EOMI and PERRL ENT: Present mucous membranes moist *Routine Neck Exam Neck: Present supple *Routine Respiratory Exam Respiratory: Present CTA bilaterally *Routine Cardiovascular Exam Cardiovascular: Present RRR *Routine Abdominal Exam Abdominal: Present soft and normoactive bowel sounds; Absent tenderness *Routine Rectal Exam Rectal:: deferred *Routine Genitalia Exam Genitalia:: deferred *Routine Extremities Exam Extremities: Absent cyanosis, clubbing or edema *Routine Skin Exam Skin: Present warm; Absent rash *Routine Neurological Exam Neurological: Present alert and oriented X3 Assessment and Plan *Assessment and plan (1) Rectal bleeding: Status: Acute Category: Medical Code(s): K62.5 - Hemorrhage of anus and rectum (2) Increased mucus in stool: Status: Acute Category: Medical Code(s): R19.5 - Other fecal abnormalities (3) Incomplete defecation: Status: Acute Category: Medical Code(s): R15.0 - Incomplete defecation Plan A/P: 1. Rectal bleeding and mucus in stool with difficult and incomplete defeca tion is the preprocedural diagnosis. The patient will be anesthetized/sedated using MAC sedation. The patient has been seen and examined. Cardiac and lung assessment prior to the examination is stable. Proceed with planned diagnostic colonoscopy
[2024-04-14 09:41] VITALS: O2SAT 100
--- NOTE | 2024-04-14 09:51 | HMH.PROCNOTE ---
[facility] Procedure Note Date: 04/14/24 Time: 10:08 Procedure Note:: Colonoscopy Procedure Report: Colonoscopy with cold biopsies Endoscopist: Maynor Downing II, MD Referring physician: Viola Valdovinos NP (Elisa Garcia [facility], [address] [place] [address]) Date of Procedure: April 14, 2024 Equipment: Olympus 190 variable stiffness pediatric colonoscope Sedation: MAC sedation Indication: Ms. Marroquin is a 34-year-old female who has had longstanding difficulties with constipation, incomplete defecation and defecatory difficulty since childhood. Previously she was using a colon cleanse laxative or stimulant laxative tea. She has used magnesium citrate Gummies and psyllium capsules. She also was taking a daily probiotic and digestive enzyme. She had been on MiraLAX but more recently has been on a soluble fiber supplement (Ene's tummy?Carrol [place]) which is helping. The patient does get symptomatic severe nausea with processed meats. She also will have intermittent episodes of nausea, vomiting and diarrhea. The patient does report bright red blood with almost every bowel movement. She did have hemorrhoids after her third child. The blood is new. She also notes mucus with her stool and will pass a hard congealed mucous plug at times. She did have a small bowel obstruction in 2011. Her last colonoscopy was in 2020 ([facility]). 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 Procedure: Prior to the procedure, a history and physical exam was performed, and patient's medications and allergies were reviewed. The risks, benefits and alternatives of the sedation and procedure were discussed with the patient. All questions were answered and informed consent was obtained. The patient was brought to the procedure room. Patient identification and proposed procedure were verified by the physician and the nurse. The patient was placed in a left lateral decubitus position and the scope was passed under direct vision. Throughout the procedure, the patient's blood pressure, pulse, and oxygen saturations were monitored continuously. The colonoscopy was accomplished without difficulty. The patient tolerated the procedure well. Findings: On digital rectal examination there was normal rectal tone. There were no external hemorrhoids. There was an anterior rectocele. The colonoscope was introduced through the anal canal to the rectum and advanced to the cecum. The ileocecal valve and appendiceal orifice were identified. The scope was advanced a short distance into the ileum which appeared grossly normal. The scope was then withdrawn into the colon. The cecum, ascending, transverse, descending and sigmoid colon were grossly normal. There was some colonic redundancy and flaccidity suggestive of colonic dysmotility. Cold biopsies were taken from the ileum and right colon. There were no mucosal abnormalities identified. Upon withdrawal into the distal rectum, there was mild mucosal erythema and punctate erosion with mucus in the distal rectum consistent with very mild proctitis and cold biopsies were obtained. Upon retroflexion within the rectum there were grade 1-2 internal hemorrhoids. The preparation was excellent throughout with [place] Preparation Score of 9. The cecal time was 12 minutes. Impression: 1. Anterior rectocele 2. Mild distal proctitis 3. Mild colonic redundancy/placidity suggestive of colonic dysmotility Plan: I will follow-up the biopsies. Certainly the mild proctitis could be a manifestation of strongyloidiasis. We will discuss whether treatment (i.e. ivermectin) would be warranted. I do feel that the mild proctitis is responsible for the mucus and blood. I would also consider Canasa suppository. The patient does have longstanding incomplete defecation/constipation. I do feel that a large part of this is outlet dysfunction constipation often termed pelvic floor dyssynergia. Slow transit constipation refers to slowed movement of contents through the digestive tract and this type of constipation responds very well to most laxatives. Outlet dysfunction, which makes up 50% of those with constipation, refers to an issue with the actual elimination mechanism of stool. The diagnosis of outlet dysfunction constipation is often made in those patients with constipation that respond poorly or not at all to standard laxatives such as osmotics (MiraLAX, Linzess, Trulance), fiber supplements, stimulant laxatives, diet and fluid intake. Up to 50% of patients with chronic constipation have pelvic floor dysfunction (PFD, or dyssynergia). This condition is characterized by impaired coordination between pelvic floor muscle (e.g., puborectalis) relaxation and weakness of the defecatory mechanism which is necessary for normal defecation and bowel evacuation. Defecatory function is a delicate balance between the nerves and muscles. The nerves that arise from the sacral spine are very closely tied to bowel/rectal evacuation. This sacral nervous system allows you to recognize when your rectum is full and allows you to correctly contract muscles to allow for your rectum to evacuate fully. When this balance is upset there is incorrect communication between the nervous system and defecatory muscles (i.e. neuromuscular). Unfortunately, pelvic floor dysfunction is not widely recognized as a possible cause of chronic constipation. As a result, many patients with medically refractory constipation do not receive optimal therapies that enable them to recover normal bowel habits. When mechanical, anatomic, and disease- and diet-related causes of constipation have been ruled out, clinical suspicion should be raised to the possibility that pelvic floor dysfunction is causing or contributing to constipation. The biggest mainstay of treatment for pelvic floor dysfunction includes retraining the pelvic floor muscles with biofeedback physical therapy. Most reviews conclude that more than 70% of adult patients complaining of pelvic floor dyssynergia are likely to benefit from biofeedback training (to completion) and so this is the treatment of choice for the problem. In some large tertiary centers of excellence (i.e. [facility] and [facility]), a larger array of additional diagnostic tests are performed included anorectal manometry and electromyography, barium defecography, water-filled balloon expulsion from the rectum and colonic transit studies with radiopaque markers are often utilized to assess severity. Most of this testing is not regionally available and most feel it is not feasible especially in the setting of failed agents and laxatives. I will discuss referral to pelvic floor physical therapy.
[2024-04-14 10:11] VITALS: BP 98/49; PULSE 61; RESP 16; TEMP 36.1; O2SAT 96
[2024-04-14 10:21] VITALS: BP 103/54; PULSE 56; RESP 17; O2SAT 99
[2024-04-14 10:31] VITALS: BP 98/60; PULSE 68; RESP 16; O2SAT 99
[2024-04-14 10:41] VITALS: BP 94/68; PULSE 68; RESP 16; O2SAT 99
== END 2024-04-14 10:54 | disposition home or self-care (01) ==
PROVIDERS: Visit Provider Internal Medicine Gastroenterology
PROC: (CPT 45380; principal; 2024-04-14 09:30)
DX: K62.5 Hemorrhage of anus and rectum (principal); R19.5 Other fecal abnormalities; K62.89 Other specified diseases of anus and rectum; K59.04 Chronic idiopathic constipation; N81.6 Rectocele; K64.8 Other hemorrhoids; Q43.8 Other specified congenital malformations of intestine
CPT/HCPCS: 45380; 81025; J7120